=== PATIENT | female | born 1945 | race Caucasian/White ===

== ENCOUNTER → 2017-01-01 | Outpatient (CLI) | payer OTHER ==
[~2017-01-01] MED LIST: ACETAMINOPHEN650 M3 PO; ALORA1 EAC1 EXT; ANEXSIA 7.5/3251 TA1 PO; ATENOLOL; ATENOLOL PO; B-12 SHOT; CELEBREX; CLARITIN10 M2 PO; CLIMARA1 PATCH.WK; Climara; DEXILANT60 MG PO; DIFLUCAN PO; ELIQUIS5 MG PO; ESTRADIOL1 EACH TD; FLAGYL PO; HYDROCODON-ACE1 EAC7 PO; INVANZ1 G/VIA1 IV; LANOXIN125 MCG PO; LEVAQUIN PO; LISINOPRIL10 MG PO; LOMOTIL 2.5-0.1 EACH PO; LOMOTIL TABLET1 TAB; LOMOTIL TABLET1 TAB PO; LOPRESSOR PO; METOPROLOL TART75 MG PO; MULTI-VITAMIN1 TAB; NEXIUM PO; NORVASC; NORVASC PO; OXYIR5 MG; PAREGORIC2 MG/5 ML; PENTASA 500 MG; PEPCID PO; PRINIVIL10 MG PO; PROTONIX; PROTONIX PO; SAVAYSA30 MG PO; TRAMADOL HCL50 M1 PO; TRAMADOL HCL50 M2 PO; VITAMIN B122500 MCG INJ; VITAMIN D2000 UNIT PO
== END | disposition home or self-care (01) ==
LOC: CSSDAY 08:43
DX: N10 Acute pyelonephritis (principal); B96.20 Unspecified Escherichia coli [E. coli] as the cause of diseases classified elsewhere; K50.90 Crohn's disease, unspecified, without complications
CPT/HCPCS: 96365; J1335

== ENCOUNTER 2017-05-16 08:07 | Inpatient (IN) | payer OTHER ==
--- NOTE | ~2017-05-16 | HP ---
Unit #: [id number] #: [id number] Patient: HUMPHREY PAGE [id number] [address] [address] [id number] I MR#: [id number] NAME: HUMPHREY PAGE. ROOM: 574 Age: 72 Sex: F Admission Date: 05/16/2017 : 1945 Attending Physician: Winston Mascorro M.D. Primary Care Physician: Jenn Damico A.P.R.N. HISTORY AND PHYSICAL REASON FOR ADMISSION Intramural perforation of the esophagus following esophageal dilation. HISTORY OF PRESENT ILLNESS Ms. Page underwent esophageal dilation earlier today. She had multiple tight strictures in the distal esophagus and, after dilation, complained of pain. Esophagram shows no extravasation of contrast and just a contained intramural perforation. The patient is, therefore, being admitted for conservative management. PAST MEDICAL HISTORY Crohn's disease status post resection. She also has a history of short bowel syndrome and history of hypertension, renal insufficiency, atrial fibrillation, pyelonephritis. PAST SURGICAL HISTORY Two bowel resections leading to short bowel syndrome, history of abdominal hysterectomy, bilateral salpingo-oophorectomy. SOCIAL HISTORY She lives with her , retired, does not smoke or drink alcohol. FAMILY HISTORY None of colon, pancreatic cancer or liver disease. ALLERGIES Penicillin, hydralazine, cefdinir and prednisone. MEDICATIONS AT HOME 1. Lomotil. 2. Claritin. 3. Metoprolol. 4. Estradiol patch. 5. Lisinopril. 6. Famotidine. 7. Pepcid. 8. Hydrocodone/acetaminophen in dose of 7.5/325 mg p.o. p.r.n. pain q.4 hours. 9. Tramadol two tablets p.o. as needed for pain. 10. Vitamin B12 injection twice a month. REVIEW OF SYSTEMS A detailed review of organ systems does not reveal any recent weight loss. In fact, she has maintained her weight. There is no history of fever, Unit #: [id number] #: [id number] Patient: HUMPHREY PAGE chills or rigors. No history of headache, seizure, chest pain. No history of cough, expectoration, hemoptysis. No history of dysuria, hematuria, pyuria. No history of focal seizures, extremity weakness. The rest of review of organ systems is unremarkable. PHYSICAL EXAMINATION GENERAL APPEARANCE: She is awake, alert and oriented and has minimal chest pain. She has no pallor icterus, lymphadenopathy, peripheral edema. VITAL SIGNS: Stable with a temperature of 98.1. Pulse 90 per minute, regular. Respiratory rate 18. Blood pressure 120/58. CARDIOVASCULAR: Normal heart sounds. No murmurs. LUNGS: Auscultation of the lungs reveals normal breath sounds. Good air entry. ABDOMEN: Soft, nontender. Liver and spleen are not palpable. Bowel sounds normal. DIAGNOSTIC STUDIES LABORATORY: Normal hemoglobin of 14.2. White count is elevated to 21,000. Baseline white count is 7,000. Serum chemistry shows a BUN and creatinine of 16 and 0.7. Albumin is 2.2. IMAGING: Esophagram shows intramural irregularity but no extravasation of contrast. CLINICAL IMPRESSION Patient with (1) perforation without any extravasation. We will manage with analgesia including morphine and Phenergan and she will be n.p.o. We will start her on IV fluids for now. She may require TPN later on. She will also start on IV Levaquin and Flagyl. Dictated by Christophe Bolivar/benitez TD: 06/03/2017 11:33 JOB #: [id number] HISTORY AND PHYSICAL Page 1 of 1 X Winston Mascorro MD HISTORY AND PHYSICAL
--- NOTE | ~2017-05-16 | OR ---
Unit #: [id number] #: [id number] Patient: HUMPHREY PEREZ [id number] [address] [place], [place] [address] [id number] I MR#: [id number] NAME: HUMPHREY PEREZ. ROOM: 574 Date of Procedure: 05/16/2017 Admission Date: 05/16/2017 Surgeon: Winston Mascorro M.D. : 1945 Attending Physician: Winston Mascorro M.D. Primary Care Physician: Jenn Damico A.P.R.N. OPERATIVE REPORT PREOPERATIVE DIAGNOSES Dysphagia and previous history of Crohn disease. The patient has come for screening colonoscopy. She has remote history of ileocolic resection. PROCEDURES PERFORMED Upper gastrointestinal endoscopy and dilation as well as colonoscopy up to ileocolic anastomosis. POSTOPERATIVE DIAGNOSES 1. For upper endoscopy, the patient had multiple strictures in the distal esophagus. These were sequentially dilated using a 15 to 18 mm TTS balloon. The rest of the examination up to third part of duodenum was normal. 2. For colonoscopy, completely normal examination up to ileocolonic anastomosis in the right colon. The mucosa throughout being normal. There were no polyps, diverticula, or hemorrhoids. RECOMMENDATIONS The patient will be followed closely over the next couple of hours as she had a multiple dilation at the same time in the distal esophagus. She will be followed up in the office in 6 to 8 weeks' time. SEDATION USED MAC. DESCRIPTION OF PROCEDURE Following detailed explanation of the potential risks and complications of an upper endoscopy and a colonoscopy, namely perforation, bleeding, and complications related to sedation, the patient was brought to GI lab and laid in the left lateral decubitus position. Lubricated tip of the Olympus video upper endoscope was passed through bite block into the proximal esophagus under direct vision. The entire esophageal mucosa was examined. The patient was noted to have multiple benign strictures and rings in the distal esophagus. The scope was then past the small hiatus hernia into the gastric cavity. Mucosa of the fundus, body, and antrum examined and appeared unremarkable. Pylorus was intubated with visualization of the normal duodenal bulb and second and third part of the duodenum. Upon withdrawal and retroflexion, incisura, cardia, and greater curve examined and no additional findings noted. The scope was then withdrawn in the distal esophagus. Using a 15 to 18 mm TTS balloon, multiple strictures in the distal esophagus were dilated starting with 15 mm and ending with 18 mm. Excellent dilation was achieved. Minimal Unit #: [id number] #: [id number] Patient: HUMPHREY PEREZ A bleeding was noted. The area was thoroughly washed with water. The scope was then withdrawn all the way up to pharynx. No additional findings noted. The examination table was then turned by 180 degrees and the patient positioned for a colonoscopy. A digital rectal examination was performed, which was normal. Lubricated tip of the Olympus video colonoscope was inserted through the anus and advanced under direct vision. The scope was advanced and passed up to sigmoid into descending colon. No diverticula were noted in this area. The scope tip was navigated all the way up to the area of the ileocolonic anastomosis. The anastomosis appeared healthy. Quality of the prep was excellent. Successive segments of the colonic mucosa were examined upon withdrawal and appeared unremarkable. There being no polyps, mass lesions, AVMs, or diverticula. The patient did not have any hemorrhoids at anal verge. The scope was then withdrawn. The patient returned to the recovery area. She tolerated the procedure without any postprocedure complications. Dictated by... Christophe Bolivar/trice TD: 05/21/2017 05:12 JOB #: [id number] OPERATIVE REPORT Page 1 of 1 X Winston Mascorro MD X PROCEDURE OPERATIVE NOTE
--- NOTE | ~2017-05-16 | CT57 ---
[facility] A Service of [facility] & [facility] RADIOLOGY TEXT RESULTS PATIENT: HUMPHREY PEREZ LOCATION: [facility] 574-01 : [birth year] UNIT #: [id number] AGE: [address]: Winston Mascorro MD SEX: F ORDER DR: [id number] [facility] [address] [place], [place] [address] [id number] I MR#: [id number] Acc #: [id number] NAME: HUMPHREY PEREZ. : 1945 SEX: F STUDY DATE/TIME: 05/18/2017 8:52 UNIT: [facility] ROOM: [facility] STUDY DESCRIPTION: CT Chest Wo Cont Attending Physician: Winston Mascorro M.D. Ordering Physician: Winston Mascorro M.D. Primary Care Physician: Jenn Damico A.P.R.N. MEDICAL IMAGING REPORT This report is preliminary unless electronic signature is present EXAM CT chest without IV contrast. COMPARISON STUDIES CT chest and abdomen 05/16/2017. HISTORY 72-year-old female with esophageal dilatation May 16, 2017 with note of a distal esophageal perforation on CT. Follow up of esophageal perforation. TECHNIQUE Axial CT imaging of the chest is performed after the patient drank Gastrografin. Coronal and sagittal reformats were constructed. Lack of IV contrast limits evaluation of adenopathy, vasculature and viscera. This CT exam was performed with one or more of the following radiation dose reduction techniques: automatic exposure control, adjustment of mA and/or kV according to patient size, and iterative reconstruction. FINDINGS For findings below the diaphragm, please see separate CT abdomen report on the same date. No adenopathy seen in the chest. Normal heart size. Normal caliber of the thoracic aorta and pulmonary artery. Airways are widely patent. Calcified lymph nodes in the AP window. Since May 16, 2017, there has been placement of a left arm PICC with the tip terminating at the confluence of the left brachiocephalic vein and SVC. There is a 7 mm thyroid nodule on the left as well as a separate 1.2 cm inferior pole left lobe thyroid nodule. As compared to CT 2 days ago, there is stable minimal residual focus of mediastinal gas in the subcarinal location, likely from recent esophageal perforation. This measures up to 4 mm. The mid- and distal esophagus fill with contrast and there is diminished fluid along the left lateral aspect of the distal esophagus near the [facility] A Service of [facility] & [facility] RADIOLOGY TEXT RESULTS PATIENT: HUMPHREY PEREZ LOCATION: [facility] 574-01 : [birth year] UNIT #: [id number] AGE: [address]: Winston Mascorro MD SEX: F ORDER DR: diaphragmatic joseph as compared to 2 days ago. There is no evidence of active leak of administered contrast at this time. There is a tiny diverticulum along the posterior wall of the gastric fundus. This is subcentimeter in size. Either trace amount of fluid versus an elongated lymph node is seen in the subcarinal location measuring up to 4 mm in short axis, stable from 05/16/2017. This could reflect minimal residual contrast from CT performed 2 days ago, at which time there was demonstration of an esophageal perforation with leak of contrast. This does not have the density of the current contrast within the esophageal lumen and there are no new areas of possible extravasation from the distal esophagus. No pneumothorax, pleural effusion or consolidative pneumonia. There is atelectasis in both lower lobes. Partly calcified nodule in the right upper lobe measuring up to 5 mm, consistent with remote granulomatous infection (image 20). IMPRESSION 1. Minimal residual fluid is seen at the left posterolateral aspect of the distal esophagus near the diaphragmatic joseph. This is diminished from 2 days ago and there is no current evidence of active leak of contrast from the distal esophagus. There is a persistent tiny focus of gas in the subcarinal mediastinum measuring 4 mm, unchanged from 2 days ago and likely related to recent esophageal perforation. No evidence of organizing abscess. 2. New left upper arm PICC has been placed with the tip terminating near the confluence of the brachiocephalic vein and SVC. 3. Two left-sided thyroid nodules measuring up to 1.2 cm. The patient had prior thyroid ultrasound on June 21, 2014, at which time there is inferior pole thyroid nodule measuring up to 2.2 cm, and this may reflect interval decrease in size of this nodule seen in 2013. This cannot be stated definitively. There are other nodules seen on ultrasound at that time. Consider routine imaging followup with outpatient thyroid ultrasound to document stability of thyroid gland. 4. For findings below the diaphragm, please see separate report of CT abdomen and pelvis on the same date. There is a small subcentimeter diverticulum of the posterior gastric fundus. Dictated by... Kennedy Maya M.D. THIS IS AN ELECTRONICALLY VERIFIED REPORT Kennedy Maya M.D. at 05/26/2017 9:38 PM RUPINDER/pcl TD: 05/18/2017 13:42 JOB #: [id number] MEDICAL IMAGING REPORT Page 1 of 1 COPY
--- NOTE | ~2017-05-16 | CR72 ---
[facility] A Service of [facility] & [facility] RADIOLOGY TEXT RESULTS PATIENT: HUMPHREY PEREZ LOCATION: [facility] 574-01 : [birth year] UNIT #: [id number] AGE: [address]: Winston Mascorro MD SEX: F ORDER DR: [id number] [facility] [address] [place], [place] [address] [id number] I MR#: [id number] Acc #: [id number] NAME: HUMPHREY PEREZ. : 1945 SEX: F STUDY DATE/TIME: 05/17/2017 6:07 UNIT: [facility] ROOM: [facility] STUDY DESCRIPTION: CR Chest Single View Portable Attending Physician: Winston Mascorro M.D. Ordering Physician: Winston Mascorro M.D. Primary Care Physician: Jenn Damico A.P.R.N. MEDICAL IMAGING REPORT This report is preliminary unless electronic signature is present EXAM Portable AP view of the chest COMPARISON May 16, 2017 and May 24, 2017. HISTORY 72-year-old female with dyspnea for 2 days post esophageal dilatation, esophageal perforation. History of hypertension and emphysema. FINDINGS/IMPRESSION Left arm PICC terminates near the upper SVC. No evidence of pneumothorax, pleural effusion or acute airspace disease. Cardiomediastinal silhouette is within normal limits. Dictated by... Kennedy Maya M.D. THIS IS AN ELECTRONICALLY VERIFIED REPORT Kennedy Maya M.D. at 05/21/2017 12:17 PM BLM/pcl TD: 05/17/2017 10:07 JOB #: [id number] MEDICAL IMAGING REPORT Page 1 of 1 COPY
--- NOTE | ~2017-05-16 | CR72 ---
[facility] A Service of [facility] & [facility] & [facility] RADIOLOGY TEXT RESULTS PATIENT: HUMPHREY PEREZ LOCATION: [facility] 574-01 : [birth year] UNIT #: [id number] AGE: [address]: Winston Mascorro MD SEX: F ORDER DR: [id number] [facility] [address] [place], [place] [address] [id number] I MR#: [id number] Acc #: [id number] NAME: HUMPHREY PEREZ. : 1945 SEX: F STUDY DATE/TIME: 05/16/2017 18:53 UNIT: [facility] ROOM: [facility] STUDY DESCRIPTION: CR Chest Single View Portable Attending Physician: Winston Mascorro M.D. Ordering Physician: Winston Mascorro M.D. Primary Care Physician: Jenn Damico A.P.R.N. MEDICAL IMAGING REPORT This report is preliminary unless electronic signature is present EXAM Portable chest 05/16/2017 HISTORY Post invasive procedure PICC line placement today. Mild chest congestion. FINDINGS The heart is normal in size. Left arm approach PICC line tip is in the superior vena cava. The lungs are clear. There are no pleural effusions. IMPRESSION Left arm approach PICC line tip SVC Dictated by... Zach Ricketts M.D. THIS IS AN ELECTRONICALLY VERIFIED REPORT Zach Ricketts M.D. at 05/19/2017 8:26 AM JAY/ary TD: 05/16/2017 23:42 JOB #: [id number] MEDICAL IMAGING REPORT Page 1 of 1 COPY
--- NOTE | ~2017-05-16 | A ---
[facility] Nutrition Therapy DATE: 05/17/17 Patient: HUMPHREY PEREZ Physician: ANALY Address: [address] [place] [address] Room/Bed: [address] [place] [address], Zip: [place] [address] Admit Date: 05/16/17 Date of : [birth year] Height: 5 5 Weight: 140 63.8 NUTRITIONAL ASSESSMENT: REASON: PT SEEN FOR DX (ALSO 1 NUTRITION RISK PT RE: WEIGHT LOSS BUT DID NOT SHOW UP ON NUTRITION RD SCREEN) ALSO TPN EVALUATION PT IS 72 Y.O. FEMALE ADMITTED FOR CROHNS DISEASE, DIARRHEA, GERD, DYSPHAGIA PMH: CROHNS DISEASE, AFIB, GERD, B12 DEFICIENCY, CKD STAGE 3, HTN Anthropometrics: 5'5", WT: 146# (66 KG), BMI: 24.3 Labs: BUN: 29, ALB: 3.3, GFR: 41.2 Meds: TPN, PHENERGAN I/O & Bowel function: 1081/300 Skin Integrity: NO KNOWN SKIN ISSUES Estimated Nutrition Needs: 9023-9595 KCAL (25-30 KCAL/KG BW) 66-86 G PRO (1.0-1.3 G PRO/KG BW) FLUIDS CONSISTENT W/KCAL NEEDS OR MANAGE PER MD Assessment: CHART REVIEWED AND EVENTS NOTED. PT SEEN FOR DX, ALSO TPN EVAL. PT REPORTS DECREASED PO INTAKE 2' DECREASED APPETITE PAST SEVERAL DAYS D/T CHRONIC DIARRHEA. PT REPORTS A WEIGHT GAIN PAST SEVERAL MONTHS. PT ADDS SHE HAS BEEB TRYING TO LOSE A FEW POUNDS TOO. PT IS S/P EGD AND COLONOSCOPY REVEALING ESOPHAGEAL VARICES. PT CURRENTLY RECEIVING TPN 10% DEXTROSE/4.25% AA @ 50 ML/HR + NO LIPIDS (GOAL IS 100 ML/HR PER PHARMACY NOTES). PT AND FAMILY IN ROOM REPORTED NO DIET QUESTIONS AT THIS TIME. RD TO FOLLOW. SEE RECOMMENDATIONS BELOW. -TPN PROVIDES 51 G PRO, 408 NON-PROTEIN KCAL, 612 TOTAL KCAL Dx: INADEQUATE PROTEIN-ENERGY INTAKE R/T CURRENT DIAGNOSIS AEB PT RECEIVING TPN. Intervention: 1. TPN Monitoring, Evaluation and Goals: 1. TOTAL PARENTERAL NUTRITION; PROVIDE >80% ESTIMATED NUTRIENT NEEDS 2. ORAL INTAKE; ADVANCE DIET AND CONSUME >50% OF MEALS W/NO C/O N/V/D 3. WEIGHTS; PROMOTE WEIGHT MAINTENANCE 4. LABS; WNL [facility] Nutrition Therapy DATE: 05/17/17 Patient: HUMPHREY Nish ANA Physician: ANALY Address: [address] [place] [address] Room/Bed: [address] [place] [address], Zip: [place] [address] Admit Date: 05/16/17 Date of : [birth year] Height: 5 5 Weight: 140 63.8 5. GI; PROMOTE REGULAR GI FUNCTION MONITOR: -TPN RATE/TOLERANCE -WEIGHTS -LABS -DIET ADVANCEMENT? Recommendations: 1. IF PT CONTINUES TO RECEIVING TPN, RECOMMEND TO CHANGE TPN TO 25% DEXTROSE, 5% AA TO GOAL RATE OF 65 ML/HR -PROVIDES 78 G PRO, 1326 NON-PROTEIN KCAL, 1638 TOTAL KCAL (GUR: 4.10) CYCLE LIPIDS 20% 250 ML LIPIDS Q OTHER DAY TO PREVENT FATTY ACID DEFICIENCY MONITOR LABS DAILY 2. ADVANCE DIET TO CLEAR LIQUID. ONCE PT TOLERATES CLEAR LIQUID, ADVANCE TO LOW FIBER DIET 3. ENCOURAGE SLOW GRADUAL PO INTAKE ONCE DIET ADVANCES RD WILL F/U PER PROTOCOL PT IS MODERATELY COMPROMISED Respectfully, EMILIANO AYALA MS, RD, LD Food and Nutritional Services [facility] cc: client file
--- NOTE | ~2017-05-16 | CT7 ---
[facility] A Service of [facility] & [facility] RADIOLOGY TEXT RESULTS PATIENT: HUMPHREY PEREZ LOCATION: [facility] 574-01 : 46 UNIT #: [id number] AGE: [address]: Winston Mascorro MD SEX: F ORDER DR: [id number] [facility] [address] [place], [place] [address] [id number] I MR#: [id number] #: [id number] NAME: HUMPHREY PEREZ. : 1945 SEX: F STUDY DATE/TIME: 05/16/2017 12:03 UNIT: [facility] ROOM: 4 STUDY DESCRIPTION: CT Abdomen Wo Cont Attending Physician: Winston Mascorro M.D. Ordering Physician: Winston Mascorro M.D. Primary Care Physician: Jenn Damico A.P.R.N. MEDICAL IMAGING REPORT This report is preliminary unless electronic signature is present EXAM CT chest/abdomen without contrast HISTORY Evaluate for perforation of esophagus. Status post dilatation. Pain status post esophageal dilatation today. Evaluate for rupture of esophagus. Hysterectomy. Bowel resection x3. TECHNIQUE CT chest/abdomen performed without administration of intravenous contrast. CT abdomen and pelvis performed administration of deep venous contrast. This CT exam was performed with one or more of the following radiation dose reduction techniques: Automatic exposure control, adjustment of mA and/or kV according to patient size, and iterative reconstruction. COMPARISON Comparison to CT abdomen and pelvis 12/24/2016. FINDINGS Thyroid shows a 9 mm nodule in mid left thyroid lobe. 1.5 cm nodule lower pole left thyroid lobe. No axillary, mediastinal, or hilar adenopathy. Heart normal in size. No pleural effusions. Visualized portions of liver, gallbladder, spleen, pancreas, adrenal glands unremarkable. The left kidney appears smaller than the right. No acute-appearing left renal abnormality. The right kidney shows multiple nonobstructing renal calculi the largest in the upper to mid kidney measuring 1.5 cm in maximum diameter. There is mild right pyelocaliectasis. There is mild right ureteral distension relative to the left. The full extent of the ureter is not included on this examination. Similar appearance of the right ureter on prior CT abdomen and pelvis. This may be the normal physiologic state for this patient. If there is clinical concern for distal obstruction, consider a CT pelvis. Right renal cysts unchanged. No retroperitoneal adenopathy. Patient did receive some oral contrast STS. [facility] A Service of [facility] & [facility] RADIOLOGY TEXT RESULTS PATIENT: HUMPHREY PEREZ LOCATION: [facility] 574-01 : 46 UNIT #: [id number] AGE: [address]: Winston Mascorro MD SEX: F ORDER DR: material. There is a small amount of fluid and a tiny focus of hyperdense material favored to be enteric contrast along the left aspect of the distal esophagus several centimeters above the gastroesophageal junction. Finding consistent with esophageal perforation. There is no mediastinal air. There does appear to be air dissecting in the wall of the gastric cardia region. I do not see a definite extraluminal air at this location. Partial tear of gastric wall is a consideration. Remainder of stomach unremarkable. Mild gastric antral wall prominence relative to volume with no focal mass lesion seen. No change from December 2016 and favored to be the normal physiologic state for this patient. Visualized small bowel and colon show no acute abnormalities. Evidence of prior right colonic resection. No pathologic small bowel or colonic dilatation given post endoscopy status. Questionable 1.1 cm x 1 cm x 1 cm nodule inferior lower outer quadrant left breast. It is possible this could simply represent a component of nodular normal breast parenchyma. Abnormal breast nodule not excluded. Correlation with clinical examination, mammography and if warranted ultrasound recommended. Please note that CT examination is not the accepted screening modality for evaluation of the breasts. The lungs show emphysema. Peripheral subpleural fibrotic change. No dense airspace disease. No suspicious pulmonary nodule. Mild distension of esophagus with air and fluid. This may place the patient at increased risk for aspiration. Aspiration precautions recommended. The aorta normal in caliber. Multilevel degenerative change in spine. Degenerative changes in the bilateral shoulders. IMPRESSION 1. Abnormal examination. Findings have been reviewed with Dr. Mascorro immediately prior to this dictation. Patient is status post esophageal dilatation. There is no mediastinal air but along the left lateral aspect of the esophagus at its distal portion there is a small amount of fluid and a small focus of hyperdense material favored to represent enteric contrast. Findings consistent with esophageal perforation. 2. There is intramural air at the level of the gastric cardia. I do not see a clearly extraluminal air but the intramural air, would suggest at least partial mural tear at this location. Attention at followup recommended. 3. There is air and fluid within a mildly distended proximal to mid esophagus. This may place the patient at increased risk for aspiration. Aspiration precautions recommended. 4. 1.5 cm nonobstructing calculus mid to upper right kidney. There is mild right pyelocaliectasis and ureterectasis. The pyelocaliectasis is new compared to December 2016. The ureterectasis is stable. Findings could reflect the normal physiologic state for this patient. If there is concern for distal ureteral obstruction, consider CT pelvis for further evaluation. [facility] Service of [facility] RADIOLOGY TEXT RESULTS PATIENT: HUMPHREY PEREZ LOCATION: [facility] 574-01 : 46 UNIT #: [id number] AGE: [address]: Winston Mascorro MD SEX: F ORDER DR: 5. Right renal cyst stable. 6. Mild left renal atrophy. No acute left renal finding. 7. Possible 1.1 cm nodule inferior left breast lower outer quadrant. See discussion above. Recommend correlation with clinical examination and mammography and, if warranted, ultrasound. On basis of this examination, breast neoplasm not excluded. 8. Emphysema and subpleural fibrotic change in lungs. There is no clear indication of acute pulmonary disease. 9. Postoperative changes of prior bowel resection. 10. Please see remainder of incidental findings in body of report above. Dictated by... Carlos Porras M.D. THIS IS AN ELECTRONICALLY VERIFIED REPORT Carlos Porras M.D. at 05/21/2017 10:15 AM KYREE/[place]renton TD: 05/16/2017 16:07 JOB #: [id number] MEDICAL IMAGING REPORT Page 1 of 1 COPY
--- NOTE | ~2017-05-16 | CT57 ---
[facility] A Service of [facility] & [facility] RADIOLOGY TEXT RESULTS PATIENT: HUMPHREY PEREZ LOCATION: [facility] 574-01 : 46 UNIT #: [id number] AGE: [address]: Winston Mascorro MD SEX: F ORDER DR: [id number] [facility] [address] [place], [place] [address] [id number] I MR#: [id number] Acc #: [id number] NAME: HUMPHREY PEREZ. : 1945 SEX: F STUDY DATE/TIME: 05/16/2017 12:03 UNIT: [facility] ROOM: [facility] STUDY DESCRIPTION: CT Chest Wo Cont Attending Physician: Winston Mascorro M.D. Ordering Physician: Winston Mascorro M.D. Primary Care Physician: Jenn Damico A.P.R.N. MEDICAL IMAGING REPORT This report is preliminary unless electronic signature is present EXAM CT chest without contrast FINDINGS Result text under the CT abdomen examination. Please see that examination for full report. Dictated by... Carlos Porras M.D. THIS IS AN ELECTRONICALLY VERIFIED REPORT Carlos Porras M.D. at 05/21/2017 10:15 AM KYREE/[place] TD: 05/16/2017 16:10 JOB #: [id number] MEDICAL IMAGING REPORT Page 1 of 1 COPY
--- NOTE | ~2017-05-16 | CT7 ---
[facility] A Service of [facility] RADIOLOGY TEXT RESULTS PATIENT: HUMPHREY PEREZ LOCATION: [facility] [place] [facility] 574-01 : 46 UNIT #: [id number] AGE: [address]: Winston Mascorro MD SEX: F ORDER DR: [id number] [facility] [address] [place], [place] [address] [id number] I MR#: [id number] Acc #: [id number] NAME: HUMPHREY PEREZ. : 1945 SEX: F STUDY DATE/TIME: 05/18/2017 8:52 UNIT: [facility] [place] [facility] ROOM: [facility] STUDY DESCRIPTION: CT Abdomen Wo Cont Attending Physician: Winston Mascorro M.D. Ordering Physician: Winston Mascorro M.D. Primary Care Physician: Jenn Damico A.P.R.N. MEDICAL IMAGING REPORT This report is preliminary unless electronic signature is present EXAM CT abdomen without IV contrast. COMPARISON CT chest and abdomen dated May 16, 2017. INDICTIONS 72-year-old female. Patient underwent esophageal dilatation on May 16, 2017 at which time there was a small distal esophageal perforation. Imaging followup was requested. FINDINGS Axial CT imaging of the abdomen was performed after oral administration of Gastrografin. Coronal and sagittal reformats were constructed. The CT exam was performed with one or more of the following radiation dose reduction techniques: automatic exposure control, adjustment of mA and/or kV according to patient size, and iterative reconstruction. Lack of IV contrast limits evaluation of adenopathy, vasculature and viscera. For findings above the diaphragm please see separate report of CT chest on the same date. No acute fractures or suspicious osseous lesions. There is degenerative facet disease of the lower lumbar spine. There is mild levoscoliosis of the lumbar spine. Benign bone island is favored to be stable at L3 as compared to 2012. Small posterior disc protrusion L5-S1. Small amount of residual fluid is seen adjacent to the distal left esophagus, overall diminished in amount from 2 days ago. There is no evidence of active extravasation of contrast from the esophagus. There is a tiny subcentimeter diverticulum of the posterior gastric fundus. Layering density is noted in the gallbladder, perhaps reflecting cholelithiasis. No evidence of acute cholecystitis. There are calcified STS. [facility] A Service of [facility] RADIOLOGY TEXT RESULTS PATIENT: HUMPHREY PEREZ LOCATION: [facility] 574-01 : 46 UNIT #: [id number] AGE: [address]: Winston Mascorro MD SEX: F ORDER DR: splenic granulomas. Liver is unremarkable. Pancreas is within normal limits. Normal biliary caliber. Normal caliber of the abdominal aorta. Adrenal glands are within normal limits. Multifocal scarring of the left kidney. Multiple nonobstructive calculi of the right kidney the largest of which measures up to 9 mm. No evidence of hydronephrosis or hydroureter. Simple cysts in the right kidney measuring up to 3.2 cm. Separate low-density lesion in the right kidney measuring up 5 mm is too small to characterize. Inferior pole cyst is also seen in the right kidney measuring up to 2.0 cm. There is asymmetric atrophy of the left kidney. Administered contrast reaches the left colon. There has been prior right hemicolectomy. No adenopathy. No pneumoperitoneum. No layering free fluid within the abdomen. IMPRESSION 1. Diminished fluid seen adjacent to the distal esophagus, now trace without current active extravasation of contrast from the distal esophagus, most consistent with a healing contained esophageal perforation. 2. Tiny subcentimeter diverticulum of the posterior gastric fundus. 3. Small posterior disc protrusion L5-S1. 4. Two simple right renal cysts and a nonobstructive 9 mm right renal calculus as well as other smaller right renal calculi which are nonobstructive. There is a separate low-density lesion in the right kidney which is too small to characterize. 5. Finding suggestive of cholelithiasis. No evidence of acute cholecystitis. 6. Asymmetric atrophy of the left kidney with normal size and cortical thickness of the right kidney. Dictated by... Kennedy Maya M.D. THIS IS AN ELECTRONICALLY VERIFIED REPORT Kennedy Maya M.D. at 05/26/2017 9:40 PM RUPINDER/earle TD: 05/18/2017 13:50 JOB #: [id number] MEDICAL IMAGING REPORT Page 1 of 1 COPY
--- NOTE | ~2017-05-16 | EKG ---
PATIENT: HUMPHREY PEREZ UNIT #: [id number] Ventricular Rate: 72 BPM Atrial Rate: 72 BPM P-R Interval: 174 ms QRS Duration: 86 ms Q-T Interval: 388 ms QTC Calculation(Bezet): 424 ms P [place]: 57 degrees Calculated R [place]: 47 degrees Calculated T [place]: -12 degrees Diagnosis Line: Normal sinus rhythm Diagnosis Line: Minimal voltage criteria for LVH, may be normal Diagnosis Line: variant Diagnosis Line: Nonspecific ST and T wave abnormality Diagnosis Line: Abnormal ECG Diagnosis Line: When compared with ECG of 28-JAN-2017 15:02, Diagnosis Line: ST no longer elevated in Inferior leads Diagnosis Line: T wave inversion now evident in Inferior leads Diagnosis Line: Nonspecific T wave abnormality now evident in Diagnosis Line: Lateral leads Diagnosis Line: Confirmed by ASHLYN HALL MD ([id number]) on Diagnosis Line: 05/18/2017 7:15:16 PM INTERPRETING MD: EBONIE
--- NOTE | ~2017-05-16 | DS ---
Unit #: [id number] #: [id number] Patient: HUMPHREY PAGE [id number] [address] [place], [place] [address] [id number] I MR#: [id number] NAME: HUMPHREY PAGE. ROOM: 574 Age: 72 Sex: F Admission Date: 05/16/2017 : 1945 Discharge Date: 05/19/2017 Attending Physician: Winston Mascorro M.D. Primary Care Physician: Conrado RochaPYovaniRArsalan DISCHARGE SUMMARY FINAL DIAGNOSIS Intramural perforation of the esophagus following esophageal dilation, resolved spontaneously with conservative management. DISCHARGE MEDICATIONS These were the same as pre-admission medications and included: 1. Lomotil 2.5 mg one p.o. p.r.n. as needed for diarrhea. 2. Claritin 10 mg p.o. daily. 3. Metoprolol 75 mg p.o. b.i.d. 4. Estradiol patch TDSW one patch q. week. 5. Lisinopril 10 mg p.o. daily. 6. Famotidine 20 mg p.o. b.i.d. 7. Hydrocodone/acetaminophen 7.5/325 one p.o. p.r.n. pain q.4 hours. 8. Tramadol two tablets p.o. b.i.d. as needed for pain. 9. Vitamin B12 injection twice a month. In addition, the patient was discharged on a combination of four additional days of metronidazole and Levaquin tablets by mouth. NARRATIVE Ms. Page has longstanding history of diarrhea and dysphagia. She had come for elective outpatient upper endoscopy and dilation as well as colonoscopy. 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 These were dilated using a TTS balloon. Patient, however, did have post procedure chest pain and underwent a CAT scan that showed an intramural contained perforation of the distal esophagus without any extravasation of contrast into the mediastinum. She was managed conservatively and became pain free within 24 hours and was started on clear liquid diet two days later. At the time of discharge, she was eating a regular diet. She will be followed up in the office in three to four weeks' time. Dictated by... Christophe Bolivar/bennie TD: 05/21/2017 09:33 JOB #: [id number] CC: Doroteo Andrew M.D. Unit #: [id number] #: [id number] Patient: HUMPHREY PAGE Nish DISCHARGE SUMMARY Page 1 of 1 X Winston Mascorro MD DISCHARGE SUMMARY
[~2017-05-16 08:07] MED LIST changes: -ALORA1 EAC1 EXT; -LEVAQUIN PO; -LISINOPRIL10 MG PO; -LOMOTIL 2.5-0.1 EACH PO; -LOPRESSOR PO; -PEPCID PO; -TRAMADOL HCL50 M1 PO; -VITAMIN B122500 MCG INJ
[2017-05-16] MEDS ORDERED: TRAMADOL HCL50 M1 PO (14:55)
[2017-05-16] MEDS ORDERED: ALORA1 EAC1 EXT (15:00)
[2017-05-16] MEDS ORDERED: LISINOPRIL10 MG PO (15:53)
[2017-05-16] MEDS ORDERED: LOPRESSOR PO (15:53)
[2017-05-16] MEDS ORDERED: PEPCID PO (15:54)
[2017-05-16] MEDS ORDERED: CLARITIN10 M2 PO (15:54)
[2017-05-16] MEDS ORDERED: VITAMIN B122500 MCG INJ (15:55)
[2017-05-16] MEDS ORDERED: LOMOTIL 2.5-0.1 EACH PO (15:58)
[2017-05-16 17:48] LABS: HEMATOCRIT 43.7 % (35.0-45.0); HEMOGLOBIN 14.2 gm/dL (12.0-16.0); MEAN CELL VOLUME 92.4 FL (83-96); MEAN CORPUSCULAR HEMOGLOBIN 29.9 PG (28-34); MEAN CORPUSCULAR HGB CONC 32.4 g/dL (30-36); MEAN PLATELET VOLUME 9.2 FL (6.5-11.5); RED BLOOD COUNT 4.73 X10e (3.90-5.30); RED CELL DISTRIBUTION WIDTH 12.3 % (11.0-15.5); WHITE BLOOD COUNT 21.3 X10e3 (4.0-10.5)
[2017-05-16 18:43] LABS: ALBUMIN SERUM 2.2 g/dL (3.5-5.0); BILIRUBIN,TOTAL 1.1 mg/dL (0.2-2.0); BUN/CREATININE RATIO 22.85; CREATININE SERUM 0.7 mg/dL (0.6-1.4); GLOM FILT RATE Estimated 87.2 mL/min (>60); MAGNESIUM 1.2 mg/dL (1.6-3.0); POTASSIUM 4.5 mmol/L (3.5-5.1); PROTEIN TOTAL SERUM 4.1 g/dL (6.0-8.3)
[2017-05-17 05:40] LABS: HEMATOCRIT 39.6 % (35.0-45.0); MEAN CELL VOLUME 92.6 FL (83-96); MEAN CORPUSCULAR HEMOGLOBIN 30.4 PG (28-34); MEAN CORPUSCULAR HGB CONC 32.8 g/dL (30-36); MEAN PLATELET VOLUME 9.3 FL (6.5-11.5); RED BLOOD COUNT 4.28 X10e (3.90-5.30); RED CELL DISTRIBUTION WIDTH 12.5 % (11.0-15.5)
[2017-05-17 06:55] LABS: ALBUMIN SERUM 3.3 g/dL (3.5-5.0); BILIRUBIN,TOTAL 1.8 mg/dL (0.2-2.0); BUN/CREATININE RATIO 22.3; CALCIUM SERUM 8.4 mg/dL (8.4-10.2); CREATININE SERUM 1.3 mg/dL (0.6-1.4); GLOM FILT RATE Estimated 41.2 mL/min (>60); POTASSIUM 4.1 mmol/L (3.5-5.1); PROTEIN TOTAL SERUM 6.1 g/dL (6.0-8.3)
[2017-05-18 05:41] LABS: HEMOGLOBIN 12.8 gm/dL (12.0-16.0); MEAN CELL VOLUME 92.8 FL (83-96); MEAN CORPUSCULAR HEMOGLOBIN 29.7 PG (28-34); MEAN CORPUSCULAR HGB CONC 32.1 g/dL (30-36); MEAN PLATELET VOLUME 10.3 FL (6.5-11.5); RED BLOOD COUNT 4.31 X10e (3.90-5.30); RED CELL DISTRIBUTION WIDTH 12.9 % (11.0-15.5); WHITE BLOOD COUNT 12.2 X10e3 (4.0-10.5)
[2017-05-18 06:36] LABS: ALBUMIN SERUM 3.5 g/dL (3.5-5.0); BILIRUBIN,TOTAL 1.5 mg/dL (0.2-2.0); BUN/CREATININE RATIO 20.76; CALCIUM SERUM 9.1 mg/dL (8.4-10.2); CREATININE SERUM 1.3 mg/dL (0.6-1.4); GLOM FILT RATE Estimated 41.2 mL/min (>60); POTASSIUM 3.9 mmol/L (3.5-5.1); PROTEIN TOTAL SERUM 6.5 g/dL (6.0-8.3)
[2017-05-18 12:10] LABS: CK TOTAL 28 IU/L (26-140)
[2017-05-18 17:32] LABS: CK TOTAL 21 IU/L (26-140)
[2017-05-19 07:41] LABS: HEMATOCRIT 37.5 % (35.0-45.0); HEMOGLOBIN 12.3 gm/dL (12.0-16.0); MEAN CELL VOLUME 92.9 FL (83-96); MEAN CORPUSCULAR HEMOGLOBIN 30.4 PG (28-34); MEAN CORPUSCULAR HGB CONC 32.7 g/dL (30-36); MEAN PLATELET VOLUME 9.4 FL (6.5-11.5); RED BLOOD COUNT 4.04 X10e (3.90-5.30); WHITE BLOOD COUNT 10.2 X10e3 (4.0-10.5)
[2017-05-19 08:18] LABS: ALBUMIN SERUM 3.3 g/dL (3.5-5.0); BILIRUBIN,TOTAL 1.3 mg/dL (0.2-2.0); BUN/CREATININE RATIO 22.5; CALCIUM SERUM 8.9 mg/dL (8.4-10.2); CREATININE SERUM 1.2 mg/dL (0.6-1.4); GLOM FILT RATE Estimated 45.4 mL/min (>60); PHOSPHOROUS 3.8 mg/dL (2.5-4.6); PROTEIN TOTAL SERUM 6.2 g/dL (6.0-8.3)
[2017-05-19] MEDS ORDERED: FLAGYL PO (16:48)
[2017-05-19] MEDS ORDERED: LEVAQUIN PO (16:48)
== END 2017-05-19 17:16 | disposition home or self-care (01) | DRG 391 ==
LOC: COPS 08:07 → CPACUOF 13:15 → COPS 13:15 → CPACUOF 13:34 → COPS 13:34 → C5C 14:43 → CPACUOF 14:43 → C5C 16:00
PROVIDERS: Internal Medicine Gastroenterology; Nurse Practitioner
PROC: 0D738ZZ Dilation of Lower Esophagus, Via Natural or Artificial Opening Endoscopic (ICD-10-PCS; principal; 2017-05-16 09:30)
PROC: 0DJD8ZZ Inspection of Lower Intestinal Tract, Via Natural or Artificial Opening Endoscopic (ICD-10-PCS; 2017-05-16 09:30)
PROC: 02HV33Z Insertion of Infusion Device into Superior Vena Cava, Percutaneous Approach (ICD-10-PCS; 2017-05-16 09:30)
DX: K22.2 Esophageal obstruction (principal); K22.3 Perforation of esophagus; K50.90 Crohn's disease, unspecified, without complications; I48.91 Unspecified atrial fibrillation; K21.9 Gastro-esophageal reflux disease without esophagitis; Z87.442 Personal history of urinary calculi; I12.9 Hypertensive chronic kidney disease with stage 1 through stage 4 chronic kidney disease, or unspecified chronic kidney disease; N18.3 Chronic kidney disease, stage 3 (moderate)
CPT/HCPCS: 71010; 71250; 74150; 80053; 82550; 82947; 83735; 84100; 84484; 85027; 93005; J0360; J1170; J1200; J1956; J2060; J2250; J2270; J2550; J3010